=== PATIENT | male | born 1995 | race Caucasian/White ===

== ENCOUNTER 2020-03-09 22:06 | Inpatient (IN) | payer MEDICAID, OTHER, SELFPAY ==
[~2020-03-09] VITALS: Ht 170.2 cm; Wt 75.8 kg
[2020-03-09] MEDS ORDERED: ONDANSETRON 2MG/ML, 2ML ONE (22:21)
[2020-03-09 22:23] LABS: BASOPHILS % (AUTO) 0 % (0-1); EOSINOPHILS # (AUTO) 0.01 x10^3/uL (0-0.4); EOSINOPHILS % (AUTO) 0 % (1-7); LYMPHOCYTES # (AUTO) 1.03 x10^3/uL (1-3.4); LYMPHOCYTES % (AUTO) 8 % (22-44); MD NO; MEAN CORPUSCULAR HEMOGLOBIN 29.4 pg (27.5-34.5); MEAN CORPUSCULAR HGB CONC 33.9 g/dL (33.2-36.2); MEAN CORPUSCULAR VOLUME 86.7 fL (81-97); MONOCYTES # (AUTO) 0.94 x10^3/uL (0.2-0.8); MONOCYTES % (AUTO) 8 % (2-9); NEUTROPHILS % (AUTO) 84 % (42-75); PLATELET COUNT 252 x10^3/uL (130-400); RED BLOOD COUNT 5.67 x10^6/uL (4.38-5.82); RED CELL DISTRIBUTION WIDTH 13.4 % (9.4-14.8)
[2020-03-09] MEDS ORDERED: ONDANSETRON 2MG/ML, 2ML IVPush ONE (22:30)
[2020-03-09] MEDS ORDERED: SODIUM CHLORIDE 0.9% 1,000ML IVBOLUS ONE ×2 (22:30→23:30)
[2020-03-09] MEDS ORDERED: PLEASE ENTER ALLERGIES MC SCH (22:30)
[2020-03-09 22:32] LABS: ALANINE AMINOTRANSFERASE 32 U/L (12-78); ALBUMIN 3.8 g/dL (3.4-5.0); ANION GAP 13 mmol/L (5-15); CALCIUM 8.4 mg/dL (8.5-10.1); CHLORIDE 110 mmol/L (98-107)
[2020-03-09 22:34] LABS: ALKALINE PHOSPHATASE 77 U/L (45-117); BILIRUBIN,TOTAL 0.9 mg/dL (0.2-1.0)
[2020-03-09] MEDS ORDERED: ETOMIDATE 20 MG/10 ML ONE (23:49)
--- NOTE | 2020-03-09 23:56 | NUR ---
Etomidate pulled and given to Herbie grissom, with Yoan montero at bedside.
[2020-03-10] MEDS ORDERED: MAGNESIUM SULFATE PMX 2GM/50ML 50 ML IV ONE
[2020-03-10] MEDS ORDERED: POTASSIUM CHLORIDE 20 MEQ in SODIUM CHLORIDE 0.9% 250 ML IV ONE
[2020-03-10] MEDS ORDERED: MAGNESIUM SULFATE PMX 2GM/50ML 50 ML ONE (00:07)
[2020-03-10] MEDS ORDERED: POLYETHYLENE GLYCOL 17 GM PACKET PO PRN (00:30)
[2020-03-10] MEDS ORDERED: ACETAMINOPHEN 325 MG TABLET PO PRN (00:30)
[2020-03-10] MEDS ORDERED: ONDANSETRON ODT 4 MG PO PRN (00:30)
[2020-03-10] MEDS ORDERED: BISACODYL 10 MG SUPP PR PRN (00:30)
[2020-03-10] MEDS ORDERED: LORazepam 2 MG/ML, 1ML ONE (00:44)
--- NOTE | 2020-03-10 00:52 | NUR ---
Shamir rn:Md to bedside to give ativan iv. iv infusions not compatible w/ ativan. Md notified. Verbal order to give 2 mg im ativan instead. Ativan given per verbal order.
--- NOTE | 2020-03-10 00:55 | NUR ---
Shamir rn: informed this rn to give ativan iv. iv infusions not compatible w/ ativan. Md notified. Verbal order to give 2 mg im ativan instead. Ativan given per verbal order.
[2020-03-10] MEDS ORDERED: LORazepam 2 MG/ML, 1ML IVPush ONE (01:00)
[2020-03-10] MEDS ORDERED: LORazepam 2 MG/ML, 1ML IM ONE (01:00)
[2020-03-10 01:36] VITALS: BP 130/92
[2020-03-10 04:55] LABS: ANION GAP 5 mmol/L (5-15); CHLORIDE 110 mmol/L (98-107); CREATININE 1.08 mg/dL (0.7-1.3)
[2020-03-10 04:57] LABS: BASOPHILS # (AUTO) 0.01 x10^3/uL (0-0.1); BASOPHILS % (AUTO) 0 % (0-1); EOSINOPHILS # (AUTO) 0.03 x10^3/uL (0-0.4); EOSINOPHILS % (AUTO) 0 % (1-7); LYMPHOCYTES # (AUTO) 1.43 x10^3/uL (1-3.4); LYMPHOCYTES % (AUTO) 15 % (22-44); MD NO; MEAN CORPUSCULAR HEMOGLOBIN 29.7 pg (27.5-34.5); MEAN CORPUSCULAR HGB CONC 33.7 g/dL (33.2-36.2); MEAN CORPUSCULAR VOLUME 88.2 fL (81-97); MEAN PLATELET VOLUME 8.1 fL (7.4-10.4); MONOCYTES % (AUTO) 9 % (2-9); NEUTROPHILS # (AUTO) 7.29 x10^3/uL (1.8-6.8); NEUTROPHILS % (AUTO) 76 % (42-75); PLATELET COUNT 257 x10^3/uL (130-400); RED BLOOD COUNT 5.42 x10^6/uL (4.38-5.82); RED CELL DISTRIBUTION WIDTH 13.6 % (9.4-14.8); TROPONIN I 0.019 ng/mL (0.000-0.045)
[2020-03-10 09:20] VITALS: BP 125/81
[2020-03-10] MEDS: SODIUM CHLORIDE FLUSH 10ML SYR IVF SCH ×2 (09:31→20:06)
[2020-03-10] MEDS: SENNA/DOCUSATE TABLET PO SCH (09:31)
[2020-03-10 11:21] LABS: TROPONIN I < 0.015 ng/mL (0.000-0.045)
[2020-03-10 14:39] VITALS: BP 134/87
[2020-03-10 20:00] VITALS: BP 122/86
[2020-03-11 00:09] VITALS: BP 109/67
[2020-03-11 07:17] VITALS: BP 129/81
[2020-03-11] MEDS: SODIUM CHLORIDE FLUSH 10ML SYR IVF SCH (08:54)
[2020-03-11] MEDS: SENNA/DOCUSATE TABLET PO SCH (08:54)
== END 2020-03-11 10:55 | disposition home or self-care (01) | DRG 309 ==
LOC: ED 22:36 → EDIP 03-10 01:42 → 5SO 03-10 01:45 → DCLOUNGE 03-11 10:41
PROVIDERS: ADMIT Emergency Medicine; ATTEND Emergency Medicine
DX: I47.1 Supraventricular tachycardia (principal); E87.2 Acidosis; I47.2 Ventricular tachycardia; I48.91 Unspecified atrial fibrillation; F19.10 Other psychoactive substance abuse, uncomplicated; F41.9 Anxiety disorder, unspecified; E87.6 Hypokalemia; E86.0 Dehydration
CPT/HCPCS: 36415; 71045; 80048; 80053; 83690; 83735; 84484; 85025; 93005; 93306; 96361; 96374; 99291; G0378; J2405; J3480; J2060; J3475; J7030; J7050